=== PATIENT | female | born 1955 | race Caucasian/White ===

== ENCOUNTER 2016-04-16 16:31 | Emergency (ER) | payer BC ==
[~2016-04-16] VITALS: Ht 167.6 cm; Wt 92.8 kg
[~2016-04-16 16:31] MED LIST: PRIL10CA
[2016-04-16 16:37] VITALS: PULSE 105; RESP 18; TEMP 98.2; O2SAT 97
[2016-04-16] MEDS ORDERED: ZOCO10TA PO (16:49)
[2016-04-16] MEDS ORDERED: OMEP10CA PO (16:49)
[2016-04-16] MEDS ORDERED: ACETAMINOPHEN/HYDROcodone 325 MG/5 MG TAB PO ONE (17:15)
[2016-04-16] MEDS ORDERED: IBUP400T20 PO (17:19)
[2016-04-16] MEDS ORDERED: NORC5TAB PO (17:19)
--- NOTE | 2016-04-16 17:20 | PD ---
HPI Chief Complaint: Musculoskeletal Complaint Time Seen by Provider: 17:06 Travel History International Travel<30 days: No Contact w/Intl Traveler<30days: No Traveled to known affect area: No History of Present Illness HPI The patient is a 60-year-old female who presents to the emergency department for right leg pain. The patient states that she tried to spread across the road one week ago and felt her right leg give, the patient's subsequent fell forward on the left aspect of her body. The patient notes pain located over the posterior aspect of the right hamstring, and now notes bruising over the affected area. Patient notes limited ability to flex the right knee, especially against resistance, and notes pain with certain types of movement. She does note the ecchymosis is just superior to the popliteal fossa. She denies any numbness or tingling of the right lower extremity. Symptoms are moderate, exacerbated after straining activity where she try to spread across the road, and minimally alleviated at rest. The patient is flying back to [place] tomorrow and will follow-up with her physician there, according to her report. PFSH Past Medical History High Cholesterol: Yes GERD: Yes Tetanus Vaccination: > 5 Years Influenza Vaccination: No ?: Not Past Surgical History Hysterectomy: Yes (20 YEARS AGO) Social History Alcohol Use: No Tobacco Use: No Substance Use: No Allergies-Medications (Allergen,Severity, Reaction): Coded Allergies: No Known Allergies (Verified , 04/16/16) Reported Meds & Prescriptions Reported Meds & Active Scripts Active Reported Omeprazole 10 Mg Cap 10 Mg PO DAILY Zocor (Simvastatin) 10 Mg Tab 10 Mg PO DAILY Review of Systems Musculoskeletal: Positive: Limited ROM, Pain Skin: Positive Other (bruising over the posterior aspect the right hamstring.) Neurologic: No: Paresthesia, Sensory Disturbance Physical Exam Narrative GENERAL: Awake, alert, very pleasant 60-year-old female who appears her stated age and is in no acute respiratory distress. SKIN: Warm and dry. HEAD: Atraumatic. Normocephalic. EYES: No injection or drainage. MUSCULOSKELETAL: The patient was placed on the stretcher, prone position. The patient's posterior aspect reveals ecchymosis over the medial and distal aspect the right hamstring. The patient has limited range of motion with flexion of the knee, is unable to flex it against resistance. Calf is soft. Tenderness located over the medial aspect of the distal hamstring over the popliteal fossa. No hematoma palpable. NEUROLOGICAL: Awake and alert. No obvious cranial nerve deficits. Motor grossly within normal limits. Normal speech. PSYCHIATRIC: Appropriate mood and affect; insight and judgment normal. Data Data Last Documented VS Vital Signs Date Time Temp Pulse Resp B/P Pulse Ox O2 Delivery O2 Flow Rate FiO2 04/16/16 16:37 98.2 105 18 97 Orders Canvas Knee Splint (Cks) (04/16/16 ) Crutches (04/16/16 17:13) Acetamin-Hydrocod 325-5 Mg (Brooks 5-325 (04/16/16 17:15) MDM Medical Decision Making Medical Screen Exam Complete: Yes Emergency Medical Condition: Yes Medical Record Reviewed: Yes Differential Diagnosis Differential diagnoses includes partial hamstring tear, complete hamstring tear , ruptured Lawler cyst, DVT, muscle strain, tendon rupture. Narrative Course The patient appears to have a partial hamstring tear affected medial aspect the right hamstring. The patient will be placed in a knee immobilizer, crutches, and prescribed pain medications and anti-inflammatories. The patient is advised to follow-up with orthopedics upon return home tomorrow for outpatient evaluation and possible physical therapy/MRI. The patient is comfortable with this plan of care and disposition. Diagnosis Primary Impression: Partial hamstring tear Qualified Code: S76.311A - Partial hamstring tear, right, initial encounter Patient Instructions: General Instructions Additional Instructions: Immobilizer and crutches as directed. Follow-up with orthopedics for outpatient follow-up and possible MRI/physical therapy. Medications as directed. Med/Other Pt SpecificInfo: Prescription(s) given Scripts Hydrocodone-Acetaminophen (Brooks)5-325 mg Tab1 Tab PO Q6H PRN (PAIN) #20 TAB Ref 0 Prov:Cornel Eckert MD 04/16/16 Ibuprofen 400 Mg [id number] Mg PO Q6H PRN (PAIN SCALE 1 TO 10) #20 TAB Ref 0 Prov:Cornel Eckert MD 04/16/16 Disposition: 01 DISCHARGE HOME Condition: Stable Cornel Eckert MD Apr 16, 2016 17:20
== END 2016-04-16 17:51 | disposition home or self-care (01) ==
LOC: PHEFT 16:31
DX: S76.311A Strain of muscle, fascia and tendon of the posterior muscle group at thigh level, right thigh, initial encounter (principal); E78.00 Pure hypercholesterolemia, unspecified; Z87.19 Personal history of other diseases of the digestive system; W18.39XA Other fall on same level, initial encounter; Y92.488 Other paved roadways as the place of occurrence of the external cause
CPT/HCPCS: 99283; E0113; L1830